=== PATIENT | female | born 1980 | race Caucasian/White ===

== ENCOUNTER 2020-02-15 13:29 | Outpatient (CLI) | payer OTHER | END 2020-02-15 13:31 | disposition home or self-care (01) | LOC: RAD 13:29 | DX: M54.5 Low back pain (principal); I10 Essential (primary) hypertension; Z87.39 Personal history of other diseases of the musculoskeletal system and connective tissue ==

== ENCOUNTER 2022-06-15 07:26 | Outpatient (CLI) | payer OTHER | END 2022-06-15 07:28 | disposition home or self-care (01) | LOC: NUCLEAR 07:26 | DX: I25.10 Atherosclerotic heart disease of native coronary artery without angina pectoris (principal) | CPT/HCPCS: 78452; 93017; A9500 ==